=== PATIENT | female | born 1975 | race Caucasian/White ===

== ENCOUNTER 2018-08-13 06:43 | Observation (INO) | payer BC, OTHER ==
[~2018-08-13 06:43] MED LIST: Lactated Ringers 1,000 ML IV SCH; Lidocaine 1%/Sod Bicarbonate in NS 8.4% 1 ML Syringe IDERM PRN; Sodium Chloride 0.9% 10 ML Syringe FLUSH PRN
[2018-08-13] MEDS ORDERED: Lidocaine 1% with EPINEPHrine 1:100,000 20 ML MDV ONE (07:20)
[2018-08-13] MEDS ORDERED: Bupivacaine 0.5% 30 ML SDV ONE (07:20)
[2018-08-13] MEDS ORDERED: Sodium Chloride 0.9% 50 ML SDV ONE (07:20)
[2018-08-13] MEDS ORDERED: Midazolam 1 MG/ML 2 ML SDV ONE (07:24)
[2018-08-13] MEDS ORDERED: Propofol 200 MG/20 ML SDV ONE ×2 (07:24→09:00)
[2018-08-13] MEDS ORDERED: Ondansetron 4 MG/2 ML SDV ONE (07:25)
[2018-08-13] MEDS ORDERED: fentaNYL 250 MCG/5 ML SDV ONE (07:25)
[2018-08-13] MEDS ORDERED: Ketorolac 30 MG/ML SDV ONE (07:25)
[2018-08-13] MEDS ORDERED: Rocuronium 50 MG/5 ML Vial ONE (07:25)
[2018-08-13] MEDS ORDERED: Dexamethasone 4 MG/ML 5 ML MDV ONE (07:25)
[2018-08-13] MEDS ORDERED: Lidocaine 1% 6 ML ONE (07:25)
--- NOTE | 2018-08-13 07:47 | PCM.PREANE ---
Preanesthetic Assessment - Procedure Proposed Procedure: Lap assisted vaginal hysterectomy with bilateral BS - Anesthesia/Transfusion/Family Hx Anesthesia History: Prior Anesthesia Without Reaction Family History of Anesthesia Reaction: No Transfusion History: No Prior Transfusion(s) Intubation History: Unknown - Review of Systems General: No Symptoms Pulmonary: No Symptoms Cardiovascular: No Symptoms Gastrointestinal: No Symptoms Neurological: No Symptoms Other: Reports: None - Physical Assessment NPO Status Date: 08/12/18 NPO Status Time: 21:30 Pulse: 70 O2 Sat by Pulse Oximetry: 97 Respiratory Rate: 16 Blood Pressure: 119/76 Temperature: 99.3 C Height: 1.73 m ASA Class: 2 Mental Status: Alert & Oriented x3 Thyro-Mental Finger Breadths: 3 Mouth Opening Finger Breadths: 5 ROM/Head Extension: Full Lungs: Clear to Auscultation, Normal Respiratory Effort Cardiovascular: Regular Rate, Regular Rhythm - Allergies Allergies/Adverse Reactions: Allergies Allergy/AdvReac Type Severity Reaction Status Date / Time No Known Allergies Allergy Verified 08/12/18 09:16 - Blood Blood Available: Yes - Anesthesia Plan Pre-Op Medication Ordered: None - Acknowledgements Anesthesia Type Planned: General Anesthesia Pt an Appropriate Candidate for the Planned Anesthesia: Yes Alternatives and Risks of Anesthesia Discussed w Pt/Guardian: Yes Pt/Guardian Understands and Agrees with Anesthesia Plan: Yes PreAnesthesia Questionnaire - Past Health History Medical/Surgical History: Denies Medical/Surgical History HEENT History: Reports: Impaired Vision, Other (See Below) Other HEENT History: Patient wears glasses and has a partial upper denture Cardiovascular History: Reports: None Respiratory History: Reports: None Gastrointestinal History: Reports: None Genitourinary History: Reports: None 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: Ectopic , , Other (See Below) Other OB/BYN History: Abnormal PAP, post hemorrage, laparoscopic treatment of ectopic Musculoskeletal History: Reports: Arthritis Neurological History: Reports: None Psychiatric History: Reports: Addiction Other Psychiatric History: Methamphetamine abuse (Patient has been clean for 16 years) Endocrine/Metabolic History: Reports: None Hematologic History: Other Hematologic History: Post hemorrhage (No blood transfusion needed) Immunologic History: Reports: None Oncologic (Cancer) History: Reports: None Dermatologic History: Reports: None - Past Surgical History Head Surgeries/Procedures: Reports: None HEENT Surgical History: Reports: None Cardiovascular Surgical History: Reports: None Respiratory Surgical History: Reports: None GI Surgical History: Reports: None Female Surgical History: Reports: Section, LEEP Endocrine Surgical History: Reports: None Neurological Surgical History: Reports: None Other Musculoskeletal Surgeries/Procedures:: Right hand surgery Oncologic Surgical History: Reports: None Dermatological Surgical History: Reports: None - SUBSTANCE USE Smoking Status *Q: Current Some Day Smoker Tobacco Use Within Last Twelve Months: Other (See Below) Other Tobacco Use Within Last Twelve Months: Vapes Second Hand Smoke Exposure: No Recreational Drug Use History: Yes Recreational Drug Type: Reports: Methamphetamine - HOME MEDS Home Medications: Home Meds Acetaminophen/oxyCODONE [Percocet 325-5 MG] 1 tab PO Q4H PRN 08/12/18 [History] Cyclobenzaprine [Flexeril] 10 mg PO TID PRN 08/12/18 [History] Ibuprofen [Motrin] 200 - 600 mg PO Q4H PRN 08/12/18 [History] Naproxen Sodium [Midol] 220 mg PO BID PRN 08/12/18 [History] - CURRENT (IN HOUSE) MEDS Current Meds: Current Medications Lactated Ringer's (Ringers, Lactated) 1,000 mls @ 125 mls/hr IV ASDIRECTED GABBY Stop: 08/13/18 23:00 Lidocaine/Sodium Bicarbonate (Buffered Lidocaine 1% In Ns 8.4%) 0.25 ml IDERM ONETIME PRN PRN Reason: Prior to IV Start Stop: 08/13/18 18:00 Sodium Chloride (Saline Flush) 10 ml FLUSH ASDIRECTED PRN PRN Reason: Keep Vein Open Stop: 08/13/18 18:00 Discontinued Medications Bupivacaine HCl (Marcaine 0.5%) Confirm Administered Dose 30 ml .ROUTE .STK-MED ONE Stop: 08/13/18 07:21 Dexamethasone (Dexamethasone) Confirm Administered Dose 20 mg .ROUTE .STK-MED ONE Stop: 08/13/18 07:26 Fentanyl (Sublimaze) Confirm Administered Dose 250 mcg .ROUTE .STK-MED ONE Stop: 08/13/18 07:26 Lidocaine HCl (Xylocaine-Mpf 1%) Confirm Administered Dose 6 mls @ as directed .ROUTE .STK-MED ONE Stop: 08/13/18 07:26 Ketorolac Tromethamine (Toradol) Confirm Administered Dose 30 mg .ROUTE .STK- MED ONE Stop: 08/13/18 07:26 Lidocaine/Epinephrine (Xylocaine 1% With Epinephrine 1:100,000) Confirm Administered Dose 20 ml .ROUTE .STK-MED ONE Stop: 08/13/18 07:21 Midazolam HCl (Versed 1 Mg/Ml) Confirm Administered Dose 2 mg .ROUTE .STK-MED ONE Stop: 08/13/18 07:25 Ondansetron HCl (Zofran) Confirm Administered Dose 4 mg .ROUTE .STK-MED ONE Stop: 08/13/18 07:26 Propofol (Diprivan 20 Ml) Confirm Administered Dose 400 mg .ROUTE .STK-MED ONE Stop: 08/13/18 07:25 Rocuronium [place] (Zemuron) Confirm Administered Dose 50 mg .ROUTE .STAudionamix-MED ONE Stop: 08/13/18 07:26 Sodium Chloride (Normal Saline) Confirm Administered Dose 50 ml .ROUTE .STAudionamix-MED ONE Stop: 08/13/18 07:21
[2018-08-13] MEDS ORDERED: ceFAZolin 1 GM Vial ONE (08:23)
[2018-08-13] MEDS ORDERED: Lactated Ringers 1,000 ML ONE (08:46)
[2018-08-13] MEDS ORDERED: HYDROmorphone 0.5 MG/0.5 ML Syringe ONE ×4 (08:49→10:00)
[2018-08-13] MEDS ORDERED: Neostigmine Methylsulfate 1 MG/ML 5 ML Syringe ONE (09:25)
--- NOTE | 2018-08-13 10:37 | PCM.OPNOTE ---
- General Post-Op/Procedure Note Date of Surgery/Procedure: 08/13/18 Operative Procedure(s): laparoscopic assisted hysterectomy Findings: Normal pelvic anatomy, small remnants of fallopian tubes Pre Op Diagnosis: menorrhagia Post-Op Diagnosis: Same Anesthesia Technique: General ET Tube Primary Surgeon: Julieta Leo Shoe Salesman: Estelle Torres Fluid Replacement, Intraop: 1,900 Output, Urine Amount: 50 EBL in mLs: 50 Complications: None Condition: Good Free Text/Narrative:: After obtaining appropriate consent she was taken the the operating room where general anesthetic was administered. She was prepped and draped in the usual sterile fashion in high lithotomy using shira stirrups. A weighted speculum was placed in the posterior vagina and a paulo utilized anteriorly to visualize the cervix which was grasped with a single toothed tenaculum and placed on traction. A uterine manipulator was then advanced into the uterus. Attention was re-directed to the abdomen and a 5 mm skin incision was made in the patient's umbilical fold. A blunt tipped trocar was advanced under direct visualization using the laparoscope. The abdomen was insufflated and no evidence of injury upon entry was noted. General survey of the abdomen reveal normal uterus and ovaries. A 5 mm incision was then made on each the right and left side and a blunt tipped trocar was advanced under direct visualization. The left ovary was elevated and the IP ligement was cauterized and transected with the Ligasure after the ureter was identified. The dissection was continued to the round ligament. The round ligament was then cauterized and transected. The bladder flap was created starting on the left. Bladder was dissected off the cervix. The uterine artery and broad ligament on the left was serial cauterized and transected to the level of the cervix. The right IP, round ligament, broad ligament and uterine artery were cauterized and transected in a similar manner. No bleeding was noted at any of the pedicles. The pelvis was irrigated and suctioned. All instruments were removed and the gas was released. Attention was redirected to the vagina. Area of intended colpotomy injected with 25% marcaine with epinepherine. Incision made with scapel. The posterior cul-de-sac was entered sharply with the Rocha scissors. The long weighted speculum was placed. The uterosacral ligaments were identified bilaterally, clamped, transected with ligasure . A second clamp was placed onto the cardinal ligament bilaterally, this was transected and ligasure ligated. Attention was turned anteriorly. Blunt and sharp dissection was used to mobilize the bladder off the cervix. The anterior cul-de-sac was [default value ] entered sharply. The cardinal ligament was serially clamped, transected and suture ligated. The Cristal retractor was advanced. The cardinal ligament was then clamped to met the dissection from above including the uterine vessels bilaterally. The specimen was delivered and handed off. Inspection of the pedicles noted hemostasis. The posterior cuff was run with 0- vicryl in a running fashion. The cuff was closed using 0 vicryl figure of eights in a vertical fashion. The retractors were removed and the abdomen was reinsufflated. All pedicles were hemostatic. Some slight oozing along cuff - floseal utilized. All instruments were removed from the abdomen and the incisions were closed with 4- 0 vicryl and covered with dermabond. The cystoscope was obtained. Clear urine was noted. A survey of the bladder revealed no injury, bilateral ureteral jets and no stitches present. The bladder was drained. She was repositioned supine , draping removed and then taken to PACU in stable condition. Needle, sponge and instrument counts were correct X 3.
--- NOTE | 2018-08-13 10:50 | PCM.POSTAN ---
POST ANESTHESIA ASSESSMENT - MENTAL STATUS Mental Status: Alert - VITAL SIGNS Pulse Rate: 71 SaO2: 96 Resp Rate: 11 Blood Pressure: 118/74 Temperature: 36.8 C - RESPIRATORY Respiratory Status: Respiratory Rate WNL, Airway Patent, O2 Saturation Stable, Supplemental Oxygen - CARDIOVASCULAR CV Status: Pulse Rate WNL, Blood Pressure Stable - GASTROINTESTINAL GI Status: No Symptoms - POST OP HYDRATION Hydration Status: Adequate & Stable
[2018-08-13] MEDS ORDERED: fentaNYL 100 MCG/2 ML SDV IVPUSH PRN (11:04)
[2018-08-13] MEDS ORDERED: Ondansetron 4 MG/2 ML SDV IVPUSH PRN (11:04)
[2018-08-13] MEDS ORDERED: diphenhydrAMINE 50 MG/ML SDV IVPUSH PRN (11:04)
[2018-08-13] MEDS ORDERED: Ibuprofen 600 MG Tab PO PRN (13:00)
[2018-08-13] MEDS: Acetaminophen/oxyCODONE 325-5 MG Tab PO PRN ×2 (15:16→20:43)
[2018-08-14] MEDS: Acetaminophen/oxyCODONE 325-5 MG Tab PO PRN (05:09)
[2018-08-14 05:15] VITALS: BP 122/77
--- NOTE | 2018-08-14 08:02 | PCM.DCSUM1 ---
Discharge Summary - Hospital Course Diagnosis: Stroke: No - Discharge Data Discharge Date: 08/14/18 Discharge Disposition: Home, Self-Care 01 Condition: Good - Patient Summary/Data Operative Procedure(s) Performed: laparoscopic assisted hysterectomy Hospital Course: Admitted for pain control. Did well. Minimal bleeding. No complications. Feeling great and expressed desire for discharge morning after surgery. - Patient Instructions Diet: Usual Diet as Tolerated Activity: No Strenuous Activities Activity, Other: pelvic rest until followup Driving: Do Not Drive (1 week and as long as using pain meds) Showering/Bathing: May Shower Wound/Incision Care: Keep Operative Site/Wound Site Clean and Dry Notify Provider of: Fever, Increased Pain, Swelling and Redness, Drainage, Nausea and/or Vomiting - Discharge Plan *PRESCRIPTION DRUG MONITORING PROGRAM REVIEWED*: Not Applicable *COPY OF PRESCRIPTION DRUG MONITORING REPORT IN PATIENT CARLA: Not Applicable Home Medications: Home Meds Acetaminophen/oxyCODONE [Percocet 325-5 MG] 1 tab PO Q4H PRN 08/12/18 [History] Cyclobenzaprine [Flexeril] 10 mg PO TID PRN 08/12/18 [History] Ibuprofen [Motrin] 200 - 600 mg PO Q4H PRN 08/12/18 [History] Naproxen Sodium [Midol] 220 mg PO BID PRN 08/12/18 [History] Patient Handouts: Steps to Quit Smoking Referrals: Julieta Leo MD [Physician] - (6 weeks) - Discharge Summary/Plan Comment DC Time >30 min.: No - General Info Date of Service: 08/14/18 Functional Status: Reports: Pain Controlled - Review of Systems General: Reports: No Symptoms HEENT: Reports: No Symptoms Pulmonary: Reports: No Symptoms Cardiovascular: Reports: No Symptoms Gastrointestinal: Reports: No Symptoms Genitourinary: Reports: No Symptoms Musculoskeletal: Reports: No Symptoms Skin: Reports: No Symptoms Neurological: Reports: No Symptoms Psychiatric: Reports: No Symptoms - Patient Data Vitals - Most Recent: Last Vital Signs Temp 36.7 C 08/14/18 05:13 Pulse 63 08/14/18 05:13 Resp 18 08/14/18 05:13 BP 122/77 08/14/18 05:13 Pulse Ox 97 08/14/18 05:13 Weight - Most Recent: 108.891 kg I&O - Last 24 hours: Intake & Output 08/13/18 08/14/18 08/14/18 22:59 06:59 14:59 Intake Total 970 800 Balance 970 800 Lab Results - Last 24 hrs: Laboratory Results - last 24 hr 08/13/18 08/13/18 08/14/18 Range/Units 07:45 07:45 05:35 WBC 4.61 7.08 (3.98-10.04) K/mm3 RBC 4.78 4.22 (3.98-5.22) M/mm3 Hgb 13.9 12.4 D (11.2-15.7) gm/L Hct 42.6 38.3 (34.1-44.9) % MCV 89.1 90.8 (79.4-94.8) fl MCH 29.1 29.4 (25.6-32.2) pg MCHC 32.6 32.4 (32.2-35.5) g/dl RDW Std Deviation 45.3 45.6 (36.4-46.3) fL Plt Count 254 D 257 (182-369) K/mm3 MPV 9.5 9.8 (9.4-12.3) fl Neut % (Auto) 65.2 74.7 H (34.0-71.1) % Lymph % (Auto) 21.7 18.1 L (19.3-51.7) % [place] % (Auto) 11.3 6.6 (4.7-12.5) % Eos % (Auto) 1.1 0.4 L (0.7-5.8) Baso % (Auto) 0.7 0.1 (0.1-1.2) % Neut # (Auto) 3.01 5.28 (1.56-6.13) K/mm3 Lymph # (Auto) 1.00 L 1.28 (1.18-3.74) K/mm3 [place] # (Auto) 0.52 H 0.47 H (0.24-0.36) K/mm3 Eos # (Auto) 0.05 0.03 L (0.04-0.36) K/mm3 Baso # (Auto) 0.03 0.01 (0.01-0.08) K/mm3 Blood Type A POSITIVE Gel Antibody Screen Negative Med Orders - Current: Current Medications Diphenhydramine HCl (Benadryl) 25 mg IVPUSH Q6H PRN PRN Reason: pruritis Last Admin: 08/13/18 11:15 Dose: 50 mg Fentanyl (Sublimaze) 50 mcg IVPUSH Q5M PRN PRN Reason: Pain Ibuprofen (Motrin) 600 mg PO Q6H PRN PRN Reason: Pain (mild 1-3) Oxycodone/Acetaminophen (Percocet 325-5 Mg) 2 tab PO Q6H PRN PRN Reason: Pain (moderate 4-6) Last Admin: 08/14/18 05:09 Dose: 2 tab Discontinued Medications Bupivacaine HCl (Marcaine 0.5%) Confirm Administered Dose 30 ml .ROUTE .STK-MED ONE Stop: 08/13/18 07:21 Last Admin: 08/13/18 08:45 Dose: 14 ml Cefazolin Sodium (Ancef) Confirm Administered Dose 2 gm .ROUTE .STK-MED ONE Stop: 08/13/18 08:24 Dexamethasone (Dexamethasone) Confirm Administered Dose 20 mg .ROUTE .STK-MED ONE Stop: 08/13/18 07:26 Fentanyl (Sublimaze) Confirm Administered Dose 250 mcg .ROUTE .STK-MED ONE Stop: 08/13/18 07:26 Glycopyrrolate () Confirm Administered Dose 1 mg .ROUTE .STK-MED ONE Stop: 08/13/18 09:26 Hydromorphone HCl (Dilaudid) Confirm Administered Dose 0.5 mg .ROUTE .STK-MED ONE Stop: 08/13/18 08:50 Hydromorphone HCl (Dilaudid) Confirm Administered Dose 0.5 mg .ROUTE .STK-MED ONE Stop: 08/13/18 09:00 Hydromorphone HCl (Dilaudid) Confirm Administered Dose 0.5 mg .ROUTE .STK-MED ONE Stop: 08/13/18 09:26 Hydromorphone HCl (Dilaudid) Confirm Administered Dose 0.5 mg .ROUTE .STK-MED ONE Stop: 08/13/18 10:01 Lactated Ringer's (Ringers, Lactated) 1,000 mls @ 125 mls/hr IV ASDIRECTED [facility] Stop: 08/13/18 23:00 Last Admin: 08/13/18 08:16 Dose: 125 mls/hr Lidocaine HCl (Xylocaine-Mpf 1%) Confirm Administered Dose 6 mls @ as directed .ROUTE .ST-MED ONE Stop: 08/13/18 07:26 Lactated Ringer's (Ringers, Lactated) Confirm Administered Dose 1,000 mls @ as directed .ROUTE .STK-MED ONE Stop: 08/13/18 08:47 Ketorolac Tromethamine (Toradol) Confirm Administered Dose 30 mg .ROUTE .ST- MED ONE Stop: 08/13/18 07:26 Lidocaine/Epinephrine (Xylocaine 1% With Epinephrine 1:100,000) Confirm Administered Dose 20 ml .ROUTE .ST-MED ONE Stop: 08/13/18 07:21 Last Admin: 08/13/18 09:03 Dose: 3 ml Lidocaine/Sodium Bicarbonate (Buffered Lidocaine 1% In Ns 8.4%) 0.25 ml IDERM ONETIME PRN PRN Reason: Prior to IV Start Stop: 08/13/18 18:00 Last Admin: 08/13/18 08:16 Dose: 0.25 ml Midazolam HCl (Versed 1 Mg/Ml) Confirm Administered Dose 2 mg .ROUTE .ST-MED ONE Stop: 08/13/18 07:25 Neostigmine Methylsulfate (Neostigmine) Confirm Administered Dose 5 mg .ROUTE .ST-MED ONE Stop: 08/13/18 09:26 Ondansetron HCl (Zofran) Confirm Administered Dose 4 mg .ROUTE .STK-MED ONE Stop: 08/13/18 07:26 Ondansetron HCl (Zofran) 4 mg IVPUSH ONETIME PRN PRN Reason: Nausea/Vomiting Last Admin: 08/13/18 12:02 Dose: 4 mg Propofol (Diprivan 20 Ml) Confirm Administered Dose 400 mg .ROUTE .STK-MED ONE Stop: 08/13/18 07:25 Propofol (Diprivan 20 Ml) Confirm Administered Dose 200 mg .ROUTE .STK-MED ONE Stop: 08/13/18 09:01 Rocuronium [place] (Zemuron) Confirm Administered Dose 50 mg .ROUTE .STK-MED ONE Stop: 08/13/18 07:26 Sodium Chloride (Saline Flush) 10 ml FLUSH ASDIRECTED PRN PRN Reason: Keep Vein Open Stop: 08/13/18 18:00 Sodium Chloride (Normal Saline) Confirm Administered Dose 50 ml .ROUTE .STK-MED ONE Stop: 08/13/18 07:21 Last Admin: 08/13/18 09:03 Dose: 8 ml - Exam General: Reports: Alert, Oriented HEENT: Reports: Pupils Equal, Pupils Reactive, EOMI, Mucous Membr. Moist/[place] Neck: Reports: Supple Lungs: Reports: Clear to Auscultation, Normal Respiratory Effort Cardiovascular: Reports: Regular Rate, Regular Rhythm GI/Abdominal Exam: Normal Bowel Sounds, Soft, Non-Tender, No Organomegaly, No Distention, No Abnormal Bruit, No Mass, Pelvis Stable Rectal (Female) Exam: Normal Exam, Normal Rectal Tone Back Exam: Reports: Normal Inspection, Full Range of Motion Extremities: Normal Inspection, Normal Range of Motion, Non-Tender, No Pedal Edema, Normal Capillary Refill Skin: Reports: Warm, Dry, Intact Wound/Incisions: Reports: Healing Well Neurological: Reports: No New Focal Deficit Psy/Mental Status: Reports: Alert, Normal Affect, Normal Mood
== END 2018-08-14 09:47 | disposition home or self-care (01) ==
LOC: JD.SDS 06:43 → JD.MS 10:30
PROVIDERS: ADMIT Obstetrics & Gynecology; ATTEND Obstetrics & Gynecology
DX: N80.0 Endometriosis of uterus (principal); N72 Inflammatory disease of cervix uteri; N83.8 Other noninflammatory disorders of ovary, fallopian tube and broad ligament; M19.90 Unspecified osteoarthritis, unspecified site; F15.10 Other stimulant abuse, uncomplicated; Z87.891 Personal history of nicotine dependence
CPT/HCPCS: 36415; 58552; 81025; 85025; 86850; 86900; 86901; A9270; G0378; J0690; J1100; J1170; J1200; J1885; J2001; J2250; J2405; J2704; J2710; J3010; J3490; J7120; 00944

== ENCOUNTER 2018-08-22 20:26 | Observation (INO) | payer BC ==
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
--- NOTE | 2018-08-22 22:26 | PCM.HP ---
H&P History of Present Illness - General Date of Service: 08/22/18 Source of Information: Patient - History of Present Illness Initial Comments - Free Text/Narative: 43 year old s/p LUI on 08/13/18. Had been doing excellent until this evening when her daughter jumped on her abdomen and she felt a pop and suddenly had some vaginal bleeding. No prior bleeding or issues. ER physician suspected cuff separation and called me. Exam supported small area of vaginal cuff separation without evisceration. Left Back Pain Score (Numeric/FACES): 5 - Related Data Allergies/Adverse Reactions: Allergies Allergy/AdvReac Type Severity Reaction Status Date / Time No Known Allergies Allergy Verified 08/22/18 20:39 Home Medications: Home Meds Acetaminophen/oxyCODONE [Percocet 325-5 MG] 1 tab PO Q4H PRN 08/12/18 [History] Cyclobenzaprine [Flexeril] 10 mg PO TID PRN 08/12/18 [History] Ibuprofen [Motrin] 200 - 600 mg PO Q4H PRN 08/12/18 [History] Naproxen Sodium [Midol] 220 mg PO BID PRN 08/12/18 [History] Past Medical History - Past Health History Medical/Surgical History: Denies Medical/Surgical History HEENT History: Reports: Impaired Vision, Other (See Below) Other HEENT History: Patient wears glasses and has a partial upper denture Cardiovascular History: Reports: None Respiratory History: Reports: None Gastrointestinal History: Reports: None Genitourinary History: Reports: None [employer]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 , , Other (See Below) Other OB/BYN History: Abnormal PAP, post hemorrage, laparoscopic treatment of ectopic Musculoskeletal History: Reports: Arthritis Neurological History: Reports: None Psychiatric History: Reports: Addiction Other Psychiatric History: Methamphetamine abuse (Patient has been clean for 16 years) Endocrine/Metabolic History: Reports: None Hematologic History: Other Hematologic History: Post hemorrhage (No blood transfusion needed) Immunologic History: Reports: None Oncologic (Cancer) History: Reports: None Dermatologic History: Reports: None - Past Surgical History Head Surgeries/Procedures: Reports: None HEENT Surgical History: Reports: None Cardiovascular Surgical History: Reports: None Respiratory Surgical History: Reports: None GI Surgical History: Reports: None Female Surgical History: Reports: Section, Hysterectomy, LEEP Endocrine Surgical History: Reports: None Neurological Surgical History: Reports: None Other Musculoskeletal Surgeries/Procedures:: Right hand surgery Oncologic Surgical History: Reports: None Dermatological Surgical History: Reports: None Social & Family History - Family History Family Medical History: Noncontributory - Tobacco Use Smoking Status *Q: Never Smoker - Caffeine Use Caffeine Use: Reports: Coffee - Recreational Drug Use Recreational Drug Use: No H&P Review of Systems - Review of Systems: Review Of Systems: See Below General: Reports: No Symptoms. Denies: Fever HEENT: Reports: No Symptoms Pulmonary: Reports: No Symptoms Cardiovascular: Reports: No Symptoms Gastrointestinal: Reports: No Symptoms Genitourinary: Reports: No Symptoms Musculoskeletal: Reports: No Symptoms Skin: Reports: No Symptoms Psychiatric: Reports: No Symptoms Neurological: Reports: No Symptoms Hematologic/Lymphatic: Reports: No Symptoms Immunologic: Reports: No Symptoms Exam - Exam Exam: See Below - Vital Signs Vital Signs: Last Vital Signs Temp 36.6 C 08/22/18 20:34 Pulse 87 08/22/18 20:34 Resp 16 08/22/18 20:34 BP 128/86 08/22/18 20:34 Pulse Ox 98 08/22/18 20:34 Weight: 111.13 kg - Exam General: Alert, Oriented, 4 HEENT: PERRLA, Hearing Intact, Mucosa Moist & Dorris, Nares Patent, Normal Nasal Septum, Posterior Pharynx Clear, Conjunctiva Clear, EOMI, EACs Clear, TMs Clear Neck: Supple, Trachea Midline, 2 Lungs: Clear to Auscultation, Normal Respiratory Effort Cardiovascular: Regular Rate, Regular Rhythm GI/Abdominal Exam: Normal Bowel Sounds, Soft, Non-Tender, No Organomegaly, No Distention (Female) Exam: Other (partial (about half of length) vaginal cuff separation without evisceration) Back Exam: Normal Inspection, Full Range of Motion, NT Extremities: Normal Inspection, Normal Range of Motion, Non-Tender, No Pedal Edema, Normal Capillary Refill Skin: Warm, Dry, Intact Neurological: Cranial Nerves Intact, Reflexes Equal Bilateral Neuro Extensive - Mental Status: Alert, Oriented x3, Normal Mood/Affect, Normal Cognition Neuro Extensive - Motor, Sensory, Reflexes: CN II-XII Intact, Normal Gait, Normal Reflexes Psychiatric: Alert, Normal Affect, Normal Mood Problem List Initiated/Reviewed/Updated: Yes Orders Last 24hrs: Active Orders 24 hr Category Date Time Status URINALYSIS W/MICROSCOPIC [UA W/MICROSCOPIC] [URIN] Stat Lab 08/22/18 22:00 Received Assessment/Plan Comment:: Vaginal cuff separation - Plan careful inspection of vaginal cuff in OR with irrigation and repair. -24 hours of IV antibiotics. - Nothing in vagina until 6 weeks.
[2018-08-22] MEDS ORDERED: Lactated Ringers 1,000 ML ONE (22:46)
[2018-08-22] MEDS ORDERED: Lactated Ringers 1,000 ML IV ONE (22:49)
[2018-08-22] MEDS ORDERED: Propofol 200 MG/20 ML SDV ONE (22:50)
[2018-08-22] MEDS ORDERED: Lidocaine 1% 4 ML ONE (22:50)
[2018-08-22] MEDS ORDERED: Midazolam 1 MG/ML 2 ML SDV ONE (22:53)
[2018-08-22] MEDS ORDERED: fentaNYL 100 MCG/2 ML SDV ONE (22:53)
[2018-08-22] MEDS ORDERED: Sodium Chloride 0.9% 50 ML SDV ONE (22:59)
[2018-08-22] MEDS ORDERED: Lidocaine 1% with EPINEPHrine 1:100,000 20 ML MDV ONE (22:59)
--- NOTE | 2018-08-22 23:02 | PCM.PREANE ---
Preanesthetic Assessment - Procedure Proposed Procedure: close vag cuff - Anesthesia/Transfusion/Family Hx Anesthesia History: Prior Anesthesia Without Reaction Family History of Anesthesia Reaction: No Transfusion History: No Prior Transfusion(s) Intubation History: Unknown - Review of Systems General: No Symptoms Pulmonary: No Symptoms Cardiovascular: No Symptoms Gastrointestinal: No Symptoms Neurological: No Symptoms Other: Reports: None - Physical Assessment NPO Status Date: 08/22/18 NPO Status Time: 20:30 O2 Sat by Pulse Oximetry: 98 Respiratory Rate: 16 Vital Signs: Last Vital Signs Temp 97.8 F 08/22/18 20:34 Pulse 87 08/22/18 20:34 Resp 16 08/22/18 20:34 BP 128/86 08/22/18 20:34 Pulse Ox 98 08/22/18 20:34 Height: 5 ft 8 in Weight: 111.13 kg ASA Class: 2E Mental Status: Alert & Oriented x3 Airway Class: Mallampati = 1 Dentition: Reports: Normal Dentition Thyro-Mental Finger Breadths: 3 Mouth Opening Finger Breadths: 3 ROM/Head Extension: Full Lungs: Clear to Auscultation, Normal Respiratory Effort Cardiovascular: Regular Rate, Regular Rhythm - Lab Values: Laboratory Last Values Urine Color Yellow (Yellow) 08/22/18 22:00 Urine Appearance Clear (Clear) 08/22/18 22:00 Urine pH 5.5 (5.0-8.0) 08/22/18 22:00 Ur Specific [place] > or = 1.030 (1.005-1.030) 08/22/18 22:00 Urine Protein Trace (Negative) H 08/22/18 22:00 Urine Glucose (UA) Negative (Negative) 08/22/18 22:00 Urine Ketones Negative (Negative) 08/22/18 22:00 Urine Occult Blood Negative (Negative) 08/22/18 22:00 Urine Nitrite Negative (Negative) 08/22/18 22:00 Urine Bilirubin Negative (Negative) 08/22/18 22:00 Urine Urobilinogen 0.2 (0.2-1.0) 08/22/18 22:00 Ur Leukocyte Esterase Negative (Negative) 08/22/18 22:00 Urine RBC Not seen /hpf (0-5) 08/22/18 22:00 Urine WBC Not seen /hpf (0-5) 08/22/18 22:00 Ur Squamous Epith Cells 0-5 /hpf (0-5) 08/22/18 22:00 Urine Bacteria Not seen /hpf (FEW) 08/22/18 22:00 Urine Mucus Not seen /hpf (FEW) 08/22/18 22:00 - Allergies Allergies/Adverse Reactions: Allergies Allergy/AdvReac Type Severity Reaction Status Date / Time No Known Allergies Allergy Verified 08/22/18 20:39 - Blood Blood Available: No - Acknowledgements Anesthesia Type Planned: Spinal Pt an Appropriate Candidate for the Planned Anesthesia: Yes Alternatives and Risks of Anesthesia Discussed w Pt/Guardian: Yes Pt/Guardian Understands and Agrees with Anesthesia Plan: Yes PreAnesthesia Questionnaire - Past Health History Medical/Surgical History: Denies Medical/Surgical History HEENT History: Reports: Impaired Vision, Other (See Below) Other HEENT History: Patient wears glasses and has a partial upper denture Cardiovascular History: Reports: None Respiratory History: Reports: None Gastrointestinal History: Reports: None Genitourinary History: Reports: None 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 , , 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 (See 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) Other OB/BYN History: Abnormal PAP, post hemorrage, laparoscopic treatment of ectopic Musculoskeletal History: Reports: Arthritis Neurological History: Reports: None Psychiatric History: Reports: Addiction Other Psychiatric History: Methamphetamine abuse (Patient has been clean for 16 years) Endocrine/Metabolic History: Reports: None Hematologic History: Other Hematologic History: Post hemorrhage (No blood transfusion needed) Immunologic History: Reports: None Oncologic (Cancer) History: Reports: None Dermatologic History: Reports: None - Past Surgical History Head Surgeries/Procedures: Reports: None HEENT Surgical History: Reports: None Cardiovascular Surgical History: Reports: None Respiratory Surgical History: Reports: None GI Surgical History: Reports: None Female Surgical History: Reports: Section, Hysterectomy, LEEP Endocrine Surgical History: Reports: None Neurological Surgical History: Reports: None Other Musculoskeletal Surgeries/Procedures:: Right hand surgery Oncologic Surgical History: Reports: None Dermatological Surgical History: Reports: None - SUBSTANCE USE Smoking Status *Q: Never Smoker Tobacco Use Within Last Twelve Months: No Second Hand Smoke Exposure: No Days Per Week of Alcohol Use: 1 Recreational Drug Use History: No - HOME MEDS Home Medications: Home Meds Acetaminophen/oxyCODONE [Percocet 325-5 MG] 1 tab PO Q4H PRN 08/12/18 [History] Cyclobenzaprine [Flexeril] 10 mg PO TID PRN 08/12/18 [History] Ibuprofen [Motrin] 200 - 600 mg PO Q4H PRN 08/12/18 [History] Naproxen Sodium [Midol] 220 mg PO BID PRN 08/12/18 [History] - CURRENT (IN HOUSE) MEDS Current Meds: Current Medications Lactated Ringer's (Ringers, Lactated) 1,000 mls @ 1,000 mls/hr IV .BOLUS ONE Stop: 08/22/18 23:48 Last Admin: 08/22/18 22:52 Dose: 1,000 mls/hr Discontinued Medications Fentanyl (Sublimaze) Confirm Administered Dose 100 mcg .ROUTE .STK-MED ONE Stop: 08/22/18 22:54 Lactated Ringer's (Ringers, Lactated) Confirm Administered Dose 1,000 mls @ as directed .ROUTE .STK-MED ONE Stop: 08/22/18 22:47 Lidocaine HCl (Xylocaine-Mpf 1%) Confirm Administered Dose 4 mls @ as directed .ROUTE .STK-MED ONE Stop: 08/22/18 22:51 Midazolam HCl (Versed 1 Mg/Ml) Confirm Administered Dose 2 mg .ROUTE .STK-MED ONE Stop: 08/22/18 22:54 Propofol (Diprivan 20 Ml) Confirm Administered Dose 200 mg .ROUTE .STK-MED ONE Stop: 08/22/18 22:51
[2018-08-22] MEDS ORDERED: Citric Acid/Sodium Citrate Solution 30 ML Cup ONE (23:04)
[2018-08-22] MEDS ORDERED: ceFAZolin 1 GM Vial ONE (23:29)
[2018-08-22] MEDS ORDERED: Ondansetron 4 MG/2 ML SDV ONE (23:44)
[2018-08-22] MEDS ORDERED: Metoclopramide 10 MG/2 ML SDV ONE (23:54)
--- NOTE | 2018-08-23 00:06 | PCM.POSTAN ---
POST ANESTHESIA ASSESSMENT - MENTAL STATUS Mental Status: Alert, Oriented - VITAL SIGNS Pulse Rate: 78 SaO2: 99 Resp Rate: 10 Blood Pressure: 100/58 Temperature: 97.2 F - RESPIRATORY Respiratory Status: Respiratory Rate WNL, Airway Patent, O2 Saturation Stable, Supplemental Oxygen - CARDIOVASCULAR CV Status: Pulse Rate WNL, Blood Pressure Stable - GASTROINTESTINAL GI Status: No Symptoms - PAIN Pain Score: 0 - POST OP HYDRATION Hydration Status: Adequate & Stable
[2018-08-23] MEDS ORDERED: Acetaminophen 325 MG Tab PO PRN (00:28)
[2018-08-23] MEDS ORDERED: Ibuprofen 400 MG Tab PO PRN (00:28)
[2018-08-23] MEDS ORDERED: Clindamycin Phosphate 900 MG in Sodium Chloride 0.9% 100 ML IV SCH ×2 (00:30→02:00)
--- NOTE | 2018-08-23 00:42 | PCM.OPNOTE ---
- General Post-Op/Procedure Note Date of Surgery/Procedure: 08/23/18 Operative Procedure(s): vaginal cuff repair Findings: vaginal cuff granulation with very small area of separation Pre Op Diagnosis: cuff separation, difficult exam in ER Post-Op Diagnosis: mostly normal cuff with very small area of separation Anesthesia Technique: Spinal Primary Surgeon: Julieta Leo Anesthesia Provider: Kan Loo Fluid Replacement, Intraop: 900 Output, Urine Amount: 10 EBL in mLs: 10 Complications: None Condition: Good Free Text/Narrative:: Intake & Output 08/22/18 08/22/18 08/23/18 14:59 22:59 06:59 Output Total 5 Balance -5 Taken to or, prepped and draped in lithotomy position. Vagina irrigated copiously. Weighted speculum placed, vagina inspected. Area that appeared like dehiscence in ER actually small area of granulation tissue and very small 1 cm separation. Separation oversewn with 0 vicryl. Further irrigation preformed. Taken out of lithotomy and to PACU. Will proceed with 24 hours of antibiotics even though minimal separation.
[2018-08-23] MEDS ORDERED: Sodium Chloride 0.9% 100 ML ONE (01:27)
[2018-08-23] MEDS: Ampicillin 2 GM in Sodium Chloride 0.9% 100 ML IV SCH ×2 (01:33→06:06)
--- NOTE | 2018-08-23 02:04 | PCM48HPAN ---
Post Anesthesia Note - EVALUATION WITHIN 48HRS OF ANESTHETIC Vital Signs in Normal Range: Yes Patient Participated in Evaluation: Yes Respiratory Function Stable: Yes Airway Patent: Yes Cardiovascular Function Stable: Yes Hydration Status Stable: Yes Pain Control Satisfactory: Yes Nausea and Vomiting Control Satisfactory: Yes Mental Status Recovered: Yes (no complaints) Pulse Rate: 78 Resp Rate: 24 Temperature: 97.2 F Blood Pressure: 100/58
[2018-08-23 08:04] VITALS: BP 118/49
[2018-08-23] MEDS ORDERED: Clindamycin Phosphate in D5W 900 MG in Premix Bag 1 BAG IV SCH ×2 (10:00)
--- NOTE | 2018-08-23 10:18 | PCM.DCSUM1 ---
Discharge Summary - Hospital Course Diagnosis: Stroke: No - Discharge Data Discharge Date: 08/23/18 Discharge Disposition: Home, Self-Care 01 Condition: Good - Patient Summary/Data Operative Procedure(s) Performed: vaginal cuff repair Consults: Consultations 08/22/18 22:21 Consult to Physician [CONS] Stat - Patient Instructions Diet: Usual Diet as Tolerated Activity: No Strenuous Activities Activity, Other: pelvic rest Driving: Do Not Drive Showering/Bathing: May Shower Notify Provider of: Fever, Increased Pain, Swelling and Redness, Drainage, Nausea and/or Vomiting - Discharge Plan *PRESCRIPTION DRUG MONITORING PROGRAM REVIEWED*: No *COPY OF PRESCRIPTION DRUG MONITORING REPORT IN PATIENT CARLA: No Home Medications: Home Meds Acetaminophen/oxyCODONE [Percocet 325-5 MG] 1 tab PO Q4H PRN 08/12/18 [History] Cyclobenzaprine [Flexeril] 10 mg PO TID PRN 08/12/18 [History] Ibuprofen [Motrin] 200 - 600 mg PO Q4H PRN 08/12/18 [History] Naproxen Sodium [Midol] 220 mg PO BID PRN 08/12/18 [History] Forms: ED Department Discharge Referrals: Pat Bella MD [Primary Care Provider] - Julieta Leo MD [Physician] - - Discharge Summary/Plan Comment DC Time >30 min.: No - General Info Date of Service: 08/23/18 Functional Status: Reports: Pain Controlled - Review of Systems General: Reports: No Symptoms HEENT: Reports: No Symptoms Pulmonary: Reports: No Symptoms Cardiovascular: Reports: No Symptoms Gastrointestinal: Reports: No Symptoms Genitourinary: Reports: No Symptoms Musculoskeletal: Reports: No Symptoms Skin: Reports: No Symptoms Neurological: Reports: No Symptoms Psychiatric: Reports: No Symptoms - Patient Data Vitals - Most Recent: Last Vital Signs Temp 36.3 C 08/23/18 07:36 Pulse 71 08/23/18 07:36 Resp 14 08/23/18 07:36 BP 118/49 L 08/23/18 07:36 Pulse Ox 98 08/23/18 07:36 Weight - Most Recent: 113.03 kg I&O - Last 24 hours: Intake & Output 08/22/18 08/23/18 08/23/18 22:59 06:59 14:59 Intake Total 1450 Output Total 615 Balance 835 Lab Results - Last 24 hrs: Laboratory Results - last 24 hr 08/22/18 08/22/18 Range/Units 22:00 23:05 WBC 6.93 (3.98-10.04) K/mm3 RBC 4.63 (3.98-5.22) M/mm3 Hgb 13.6 (11.2-15.7) gm/L Hct 41.1 (34.1-44.9) % MCV 88.8 (79.4-94.8) fl MCH 29.4 (25.6-32.2) pg MCHC 33.1 (32.2-35.5) g/dl RDW Std Deviation 43.0 (36.4-46.3) fL Plt Count 323 (182-369) K/mm3 MPV 9.5 (9.4-12.3) fl Neut % (Auto) 60.6 (34.0-71.1) % Lymph % (Auto) 26.8 (19.3-51.7) % [place] % (Auto) 9.2 (4.7-12.5) % Eos % (Auto) 3.0 (0.7-5.8) Baso % (Auto) 0.3 (0.1-1.2) % Neut # (Auto) 4.19 (1.56-6.13) K/mm3 Lymph # (Auto) 1.86 (1.18-3.74) K/mm3 [place] # (Auto) 0.64 H (0.24-0.36) K/mm3 Eos # (Auto) 0.21 (0.04-0.36) K/mm3 Baso # (Auto) 0.02 (0.01-0.08) K/mm3 Urine Color Yellow (Yellow) Urine Appearance Clear (Clear) Urine pH 5.5 (5.0-8.0) Ur Specific [place] > or = 1.030 (1.005-1.030) Urine Protein Trace H (Negative) Urine Glucose (UA) Negative (Negative) Urine Ketones Negative (Negative) Urine Occult Blood Negative (Negative) Urine Nitrite Negative (Negative) Urine Bilirubin Negative (Negative) Urine Urobilinogen 0.2 (0.2-1.0) Ur Leukocyte Esterase Negative (Negative) Urine RBC Not seen (0-5) /hpf Urine WBC Not seen (0-5) /hpf Ur Squamous Epith Cells 0-5 (0-5) /hpf Urine Bacteria Not seen (FEW) /hpf Urine Mucus Not seen (FEW) /hpf Med Orders - Current: Current Medications Acetaminophen (Tylenol) 650 mg PO Q4H PRN PRN Reason: Pain (mild 1-3) Ampicillin Sodium 2 gm/ Sodium (Chloride) 100 mls @ 200 mls/hr IV Q6H [facility] Last Admin: 08/23/18 06:06 Dose: 200 mls/hr Clindamycin Phosphate 900 mg/ (Premix) 50 mls @ 100 mls/hr IV Q8H [facility] Last Admin: 08/23/18 09:23 Dose: 100 mls/hr Ibuprofen (Motrin) 600 mg PO Q6H PRN PRN Reason: Pain (mild 1-3) Discontinued Medications Cefazolin Sodium (Ancef) Confirm Administered Dose 2 gm .ROUTE .STK-MED ONE Stop: 08/22/18 23:30 Citric Acid/Sodium Citrate (Bicitra Solution) Confirm Administered Dose 30 ml .ROUTE .STK-MED ONE Stop: 08/22/18 23:05 Fentanyl (Sublimaze) Confirm Administered Dose 100 mcg .ROUTE .STK-MED ONE Stop: 08/22/18 22:54 Lactated Ringer's (Ringers, Lactated) Confirm Administered Dose 1,000 mls @ as directed .ROUTE .STK-MED ONE Stop: 08/22/18 22:47 Last Admin: 08/22/18 23:27 Dose: Not Given Lactated Ringer's (Ringers, Lactated) 1,000 mls @ 1,000 mls/hr IV .BOLUS ONE Stop: 08/22/18 23:48 Last Admin: 08/22/18 22:52 Dose: 1,000 mls/hr Lidocaine HCl (Xylocaine-Mpf 1%) Confirm Administered Dose 4 mls @ as directed .ROUTE .STK-MED ONE Stop: 08/22/18 22:51 Clindamycin Phosphate 900 mg/ (Sodium Chloride) 106 mls @ 200 mls/hr IV Q8H [facility] Stop: 08/23/18 17:02 Last Admin: 08/23/18 02:21 Dose: Not Given Gentamicin Sulfate 100 mg/ (Sodium Chloride) 102.5 mls @ 200 mls/hr IV ONETIME ONE Stop: 08/23/18 01:30 Last Admin: 08/23/18 02:08 Dose: 200 mls/hr Sodium Chloride (Normal Saline) Confirm Administered Dose 100 mls @ as directed .ROUTE .STK-MED ONE Stop: 08/23/18 01:28 Last Admin: 08/23/18 02:25 Dose: Not Given Clindamycin Phosphate 900 mg/ (Sodium Chloride) 106 mls @ 200 mls/hr IV Q8H [facility] Last Admin: 08/23/18 02:08 Dose: 200 mls/hr Lidocaine/Epinephrine (Xylocaine 1% With Epinephrine 1:100,000) Confirm Administered Dose 20 ml .ROUTE .STK-MED ONE Stop: 08/22/18 23:00 Metoclopramide HCl (Reglan) Confirm Administered Dose 10 mg .ROUTE .STK-MED ONE Stop: 08/22/18 23:55 Midazolam HCl (Versed 1 Mg/Ml) Confirm Administered Dose 2 mg .ROUTE .STK-MED ONE Stop: 08/22/18 22:54 Ondansetron HCl (Zofran) Confirm Administered Dose 4 mg .ROUTE .STK-MED ONE Stop: 08/22/18 23:45 Propofol (Diprivan 20 Ml) Confirm Administered Dose 200 mg .ROUTE .STK-MED ONE Stop: 08/22/18 22:51 Sodium Chloride (Normal Saline) Confirm Administered Dose 50 ml .ROUTE .STK-MED ONE Stop: 08/22/18 23:00 - Exam General: Reports: Alert, Oriented HEENT: Reports: Pupils Equal, Pupils Reactive, EOMI, Mucous Membr. Moist/[place] Neck: Reports: Supple Lungs: Reports: Clear to Auscultation, Normal Respiratory Effort Cardiovascular: Reports: Regular Rate, Regular Rhythm GI/Abdominal Exam: Normal Bowel Sounds, Soft, Non-Tender, No Organomegaly, No Distention, No Abnormal Bruit, No Mass, Pelvis Stable (Female) Exam: Normal External Exam, Normal Speculum Exam, Normal Bimanual Exam Back Exam: Reports: Normal Inspection, Full Range of Motion Extremities: Normal Inspection, Normal Range of Motion, Non-Tender, No Pedal Edema, Normal Capillary Refill Skin: Reports: Warm, Dry, Intact Wound/Incisions: Reports: Healing Well Neurological: Reports: No New Focal Deficit Psy/Mental Status: Reports: Alert, Normal Affect, Normal Mood
== END 2018-08-23 11:50 | disposition home or self-care (01) ==
LOC: JD.ED 20:26 → JD.SDS 22:33 → JD.MS 08-23 00:36
PROVIDERS: ADMIT Obstetrics & Gynecology; ATTEND Obstetrics & Gynecology
DX: S31.41XA Laceration without foreign body of vagina and vulva, initial encounter (principal); A58 Granuloma inguinale; W50.0XXA Accidental hit or strike by another person, initial encounter; Z90.710 Acquired absence of both cervix and uterus
CPT/HCPCS: 36415; 57200; 81001; 85025; 99284; A9270; G0378; J0290; J0690; J1580; J2001; J2250; J2405; J2704; J2765; J3010; J3490; J7030; J7120; 99282